=== PATIENT | female | born 1955 | race Caucasian/White ===

== ENCOUNTER 2023-06-05 09:20 | Day surgery (SDC) | payer MEDICAID ==
[~2023-06-05] VITALS: Ht 170.2 cm; Wt 75.0 kg
[~2023-06-05 09:20] MED LIST: SODIUM CHLORIDE 0.9% 1,000 ML ONE
[2023-06-05] MEDS ORDERED: MIDAZOLAM HCL 2 MG/2 ML VIAL ONE ×2 (09:54)
[2023-06-05] MEDS ORDERED: FentaNYL CITRATE PF 100 MCG/2 ML VIAL ONE (09:54)
[2023-06-05] MEDS: SODIUM CHLORIDE 0.9% 1,000 ML IV ONE (10:12)
[2023-06-05] MEDS ORDERED: LIDOCAINE/PF 2% 5 ML VIAL IM ONE (12:00)
[2023-06-05] MEDS ORDERED: PROPOFOL 1% 20 ML VIAL IVP ONE (12:00)
[2023-06-05] MEDS ORDERED: OXYGEN THERAPY IH SCH (20:00)
== END 2023-06-05 12:20 | disposition home or self-care (01) ==
LOC: SURGERY 09:20
PROVIDERS: ATTEND Specialist
DX: Z12.11 Encounter for screening for malignant neoplasm of colon (principal); D12.2 Benign neoplasm of ascending colon; D12.5 Benign neoplasm of sigmoid colon; Z98.890 Other specified postprocedural states
CPT/HCPCS: 45380; 88305; C1769; J2704; J3490; J7030; J2250; J3010